=== PATIENT | male | born 1970 | race Caucasian/White ===

== ENCOUNTER 2018-07-03 20:18 | Emergency (ER) | payer BC, OTHER ==
[2018-07-03 20:23] VITALS: BP 175/103; PULSE 77; TEMP 97.7; BMI 25.7
--- NOTE | 2018-07-03 20:23 | PDOC ---
Rapid Medical Evaluation Medical Evaluation: Allergies Allergy/AdvReac Type Severity Reaction Status Date / Time No Known Allergies Allergy Unverified 05/07/14 09:21 I have performed a brief in-person evaluation of this patient. The patient presents with a chief complaint of: Hx of HLD, DM; feeling lightheaded today, checked BP today and it was elevated (SBP around 170); denies cp, sob, abd pain, n/v, numbness/tingling/weakness of extremities, vertigo Pertinent physical exam findings: In NAD, no gross focal deficits I have ordered the following: Labs, EKG The patient will proceed to the ED for further evaluation. 07/03/18 20:20 Discharge Disposition - Referrals Referrals: Han Sauceda MD [Primary Care Provider] - - Patient Instructions - Post Discharge Activity
[2018-07-03 21:29] LABS: BASO % 0.9 % (0-2.0); EOS % 4.5 % (0-4.5); HEMATOCRIT 43.4 % (35.4-49); LYMPH % 30.7 % (8-40); MCH 29.9 pg (25.7-33.7); MCHC 34.7 g/dl (32.0-35.9); MEAN CELL VOLUME 86.1 fl (80-96); MEAN PLT VOLUME 7.4 fl (7.5-11.1); MONO % 8.9 % (3.8-10.2); PLATELET COUNT 269 K/MM3 (134-434); RBC 5.04 M/mm3 (4.00-5.60); RDW 13.3 % (11.9-15.9); WHITE BLOOD COUNT 8.3 K/mm3 (4.0-10.0)
[2018-07-03 22:04] LABS: ANION GAP 7 MMOL/L (8-16); BLOOD UREA NITROGEN 21 mg/dL (7-18); CALCIUM 9.6 mg/dL (8.5-10.1); CHLORIDE 102 mmol/L (98-107); CO2 29 mmol/L (21-32); CREATININE 0.9 mg/dL (0.55-1.3); GLUCOSE,RANDOM 163 mg/dL (74-106); POTASSIUM 4.5 mmol/L (3.5-5.1); SODIUM 138 mmol/L (136-145)
--- NOTE | 2018-07-03 23:31 | PDOC ---
History of Present Illness - General Chief Complaint: Blood Pressure Problem Stated Complaint: Blood Pressure Problem Time Seen by Provider: 07/03/18 20:24 History Source: Patient Exam Limitations: No Limitations - History of Present Illness Initial Comments: 07/03/18 23:26 HISTORY OF PRESENT ILLNESS: Social 47-year-old male with past medical history of rabies, hyperlipidemia presents emergency department for evaluation of intermittent lightheadedness starting at approximately 6 PM. Patient reports she was sitting down watching television and when he stood up, he began to feel more lightheaded. He checked his blood pressure at home and noted his blood pressure was 170/100. Patient denies any blurry vision, headaches, chest pain, shortness of breath, abdominal pain, nausea, vomiting. No recent travel or sick contacts. PAST MEDICAL HISTORY: Denies past medical history SURGICAL HISTORY: Denies ALLERGIES: No known drug allergies REVIEW OF SYSTEMS General/Constitutional: Denies fever or chills. Denies weakness, weight change. HEENT: Denies change in vision. Denies ear pain or discharge. Denies sore throat. Cardiovascular: Denies chest pain or shortness of breath. Respiratory: Denies cough, wheezing, or hemoptysis. Gastrointestinal: Denies nausea, vomiting, diarrhea or constipation. Denies rectal bleeding. Genitourinary: Denies dysuria, frequency, or change in urination. Musculoskeletal: Denies joint or muscle swelling or pain. Denies neck or back pain. Skin and breasts: Denies rash or easy bruising. Neurologic: Denies headache, loss of consciousness, or loss of sensation. + vertigo Psychiatric: Denies depression or anxiety. Endocrine: Denies increased thirst. Denies abnormal weight change. Hematologic/Lymphatic: Denies anemia, easy bleeding, or history of blood clots. Allergic/Immunologic: Denies hives or skin allergy. Denies latex allergy. PHYSICAL EXAM General Appearance: Well-appearing, appropriately dressed. No apparent distress , no intoxication. HEENT: EOMI, PERRLA, normal ENT inspection, normal voice, TMs normal, pharynx normal. No conjunctival pallor. No photophobia, scleral icterus. Neck: Supple. Trachea midline. No tenderness, rigidity, carotid bruit, stridor , lymphadenopathy, or thyromegaly. Respiratory/Chest: Lungs CTAB. No shortness of breath, chest tenderness, respiratory distress, accessory muscle use. No crackles, rales, rhonchi, stridor , wheezing, dullness Cardiovascular: RRR. S1, S2. No JVD, murmur, bradycardia, tachycardia. Vascular Pulses: Dorsalis-Pedis (R): 2+, Dorsalis-Pedis (L): 2+ Gastrointestinal/Abdominal: Normal bowel sounds. Abdomen soft, non-distended. No tenderness or rebound tenderness. No organomegaly, pulsatile mass, guarding, hernia, hepatomegaly, splenomegaly. Musculoskeletal/Extremities: Normal inspection. FROM of all extremities, normal capillary refill. Pelvis Stable. No CVA tenderness. No tenderness to extremities, pedal edema, swelling, erythema or deformity. Integumentary: Appropriate color, dry, warm. No cyanosis, erythema, jaundice or rash Neurologic: marine mechanic II-XII intact. Fully oriented, alert. Appropriate mood/affect. Motor strength 5/5. No appreciable EOM palsy, facial droop or sensory deficit. (-)[place]-Hallpike. Gait steady. Past History - Past Medical History Allergies/Adverse Reactions: Allergies Allergy/AdvReac Type Severity Reaction Status Date / Time No Known Allergies Allergy Unverified 07/03/18 20:23 Home Medications: Ambulatory Orders Atorvastatin Ca [Lipitor] 80 mg PO HS 07/04/18 Ergocalciferol (Vitamin D2) [Vitamin D2] 5,000 unit PO WEEKLY 07/04/18 Fenofibrate 145 mg PO DAILY 07/04/18 Glimepiride 1 mg PO BID 07/04/18 Lisinopril 5 mg PO DAILY 07/04/18 Omeprazole 20 mg PO DAILY 07/04/18 Sitagliptin Phos/Metformin HCl [Janumet 50-1,000 mg Tablet] 1 each PO BID COPD: No Diabetes: Yes Hypercholesterolemia: Yes - Suicide/Smoking/Psychosocial Hx Smoking History: Never smoked *Physical Exam - Vital Signs Last Vital Signs Temp Pulse Resp BP Pulse Ox 97.7 F 77 18 175/103 H 98 07/03/18 20:20 07/03/18 20:20 07/03/18 20:20 07/03/18 20:20 07/03/18 20:20 Moderate Sedation - Procedure Monitoring Vital Signs: Procedure Monitoring Vital Signs Temperature 97.7 F 07/03/18 20:20 Pulse Rate 77 07/03/18 20:20 Respiratory Rate 18 07/03/18 20:20 Blood Pressure 175/103 H 07/03/18 20:20 O2 Sat by Pulse Oximetry (%) 98 07/03/18 20:20 ED Treatment Course - LABORATORY CBC & Chemistry Diagram: 07/03/18 21:17 07/03/18 21:17 - ADDITIONAL ORDERS Additional order review: Laboratory Results 07/03/18 21:17 Sodium 138 Potassium 4.5 Chloride 102 Carbon Dioxide 29 Anion Gap 7 L BUN 21 H Creatinine 0.9 Creat Clearance w eGFR > 60 Random Glucose 163 H Calcium 9.6 Troponin I < 0.02 07/03/18 21:17 RBC 5.04 MCV 86.1 MCHC 34.7 RDW 13.3 MPV 7.4 L Neutrophils % 55.0 Lymphocytes % 30.7 Monocytes % 8.9 Eosinophils % 4.5 Basophils % 0.9 - RADIOLOGY Radiology Studies Ordered: Category Date Time Status CHEST PA & LAT [RAD] Stat Radiology 07/03/18 23:24 Ordered Medical Decision Making - Medical Decision Making 07/03/18 23:31 A/P: 47-year-old male with intermittent lightheadedness worsens with motion Labs, EKG, chest x-ray, urine, orthostatics, labetalol 07/04/18 02:21 CT of the head as read by imaging community relations advisor: Brain parenchyma is normal and attenuation with no mass or hematoma. There is no midline shift. Fournier-white matter differentiation is normal. Ventricles are normal. Sucking and extra-axial CSF spaces are normal. Intracranial vascular structures are normal and attenuation. There is no calvarial fracture Paranasal sinuses are normally aerated. Pressure is currently 100/73. Patient is ambulatory on the unit is currently free of all symptoms. I will discharge the patient home to follow-up with his primary doctor for blood pressure management. [place] modification to been discussed with the patient for initial treatment of blood pressure management. I discussed the physical exam findings, ancillary test results and final diagnoses with the patient. I answered all of the patient's questions. The patient was satisfied with the care received and felt comfortable with the discharge plan and treatment plan. The patient will call their primary care physician within 24 hours to arrange follow-up and will return to the Emergency Department with any new, persistent or worsening symptoms. *DC/Admit/Observation/Transfer Diagnosis at time of Disposition: Dizziness - Discharge Dispostion Disposition: HOME Condition at time of disposition: Fair Decision to Admit order: No - Referrals Referrals: Han Sauceda MD [Primary Care Provider] - - Patient Instructions Printed Discharge Instructions: DI for High Blood Pressure Additional Instructions: Your blood pressure has returned to her normal level. It is important that she monitor your blood pressure to reduce her risk of stroke, heart attack and kidney disease. Make an appointment with her primary doctor for reevaluation of your blood pressure. Return to emergency department for any concerns. - Post Discharge Activity Forms/Work/School Notes: Back to Work
[2018-07-03] MEDS ORDERED: LABETALOL HCL 100 MG TABLET (FP) PO ONE (23:32)
--- NOTE | 2018-07-04 00:41 | PDOC ---
Attending Attestation - Resident Resident Name: Patrick Varela - ED Attending Attestation I have performed the following: I have examined & evaluated the patient, The case was reviewed & discussed with the resident, I agree w/resident's findings & plan
--- NOTE | 2018-07-05 11:42 | EKG ---
Test Reason : Blood Pressure : / mmHG Vent. Rate : 066 BPM Atrial Rate : 066 BPM P-R Int : 190 ms QRS Dur : 102 ms QT Int : 396 ms P-R-T Axes : 027 -02 -14 degrees QTc Int : 415 ms NORMAL SINUS RHYTHM NORMAL ECG NO PREVIOUS ECGS AVAILABLE Confirmed by PALOMO ASENCIO, HARI ([id number]) on 07/05/2018 11:42:29 AM Referred By: Confirmed By:HARI CULVER MD
== END 2018-07-04 03:47 | disposition home or self-care (01) ==
LOC: JER 20:18
DX: R42 Dizziness and giddiness (principal); E78.5 Hyperlipidemia, unspecified; E11.9 Type 2 diabetes mellitus without complications; E78.00 Pure hypercholesterolemia, unspecified
CPT/HCPCS: 36415; 70450-TC; 80048; 84484; 85025; 93005; 93010; 99282-25

== ENCOUNTER 2021-08-02 13:45 | Emergency (ER) | payer BC, OTHER ==
[2021-08-02] MEDS ORDERED: LIDOCAINE 5% TOPICAL PATCH TP ONE (14:24)
[2021-08-02] MEDS ORDERED: ACETAMINOPHEN 500 MG TABLET (FP) PO ONE (14:24)
[2021-08-02 14:25] VITALS: BP 123/71; PULSE 78; TEMP 97.8; BMI 25.1
[2021-08-02] MEDS ORDERED: LIDOCAINE 5% TOPICAL PATCH ONE (14:31)
[2021-08-02] MEDS ORDERED: ACETAMINOPHEN 500 MG TABLET (FP) ONE (14:31)
[2021-08-02] MEDS ORDERED: LIDOCAINE PATCH REMOVAL MC SCH (22:00)
== END 2021-08-02 17:30 | disposition home or self-care (01) ==
LOC: FER 13:45
DX: S22.42XA Multiple fractures of ribs, left side, initial encounter for closed fracture (principal); W19.XXXA Unspecified fall, initial encounter
CPT/HCPCS: 71250-TC; 99284-25

== ENCOUNTER 2022-02-13 12:07 | Emergency (ER) | payer BC, OTHER ==
[2022-02-13 12:49] VITALS: TEMP 98.4; BMI 25.1
[2022-02-13 14:00] VITALS: BP 133/83; PULSE 73; RESP 20
== END 2022-02-13 13:45 | disposition home or self-care (01) ==
LOC: JERFT 12:07
DX: T46.5X1A Poisoning by other antihypertensive drugs, accidental (unintentional), initial encounter (principal)
CPT/HCPCS: 99281-25

== ENCOUNTER 2023-07-05 15:24 | Observation (INO) | payer BC, OTHER ==
[2023-07-05] MEDS ORDERED: MECLIZINE HCL 25 MG TABLET (FP) PO ONE (16:09)
[2023-07-05] MEDS ORDERED: SODIUM CHLORIDE 1,000 ML IV SCH (16:30)
[2023-07-05] MEDS ORDERED: MECLIZINE HCL 25 MG TABLET (FP) ONE (16:49)
[2023-07-05 17:19] LABS: HEMATOCRIT 42.7 % (35.4-49); HEMOGLOBIN 14.3 G/dL (11.7-16.9); MCH 28.9 pg (25.7-33.7); MCHC 33.5 g/dl (32.0-35.9); MEAN CELL VOLUME 86.3 fl (80-96); MEAN PLT VOLUME 7.8 fl (7.5-11.1); PLATELET COUNT 197.8 10^3/uL (134-434); RBC 4.95 10^6/uL (4.00-5.60); RDW 14.5 % (11.9-15.9); WHITE BLOOD COUNT 6.2 10^3/uL (4.0-10.8)
[2023-07-05 17:25] LABS: INR 0.99 (0.83-1.09); PROTHROMBIN TIME (PATIENT) 11.5 SEC (9.7-13.0)
[2023-07-05 17:28] LABS: ACTIVATED PTT 32.6 SECONDS (25.2-36.5)
[2023-07-05 17:35] LABS: PLATELET ESTIMATE ADEQUATE
[2023-07-05 17:37] LABS: ALBUMIN 4.6 g/dl (3.4-5.0); BILIRUBIN,TOTAL 0.5 mg/dl (0.2-1); CALCIUM 9.9 mg/dl (8.5-10.1); CREATININE 0.9 mg/dl (0.6-1.3); POTASSIUM 3.9 mmol/L (3.5-5.1)
[2023-07-05 17:54] LABS: CHOLESTEROL 151 mg/dl (50-200); HDL CHOLESTEROL 34 mg/dl (40-60); LDL CHOLESTEROL (ONLY DFH) 87 mg/dl (5-100)
[2023-07-05 19:59] LABS: N-TERMINAL BNP 94.4 pg/ml (5-125)
[2023-07-06 00:48] VITALS: BMI 25.7
[2023-07-06] MEDS ORDERED: GLIMEPIRIDE 2 MG TABLET PO SCH (07:00)
[2023-07-06 08:52] LABS: CALCIUM 9.9 mg/dl (8.5-10.1); CREATININE 1.1 mg/dl (0.6-1.3); POTASSIUM 4.1 mmol/L (3.5-5.1)
[2023-07-06] MEDS ORDERED: FENOFIBRIC ACID 135 MG CAP PO SCH (10:00)
[2023-07-06] MEDS ORDERED: LISINOPRIL 20 MG TABLET PO SCH (10:00)
[2023-07-06] MEDS ORDERED: amLODIPine BESYLATE 5 MG TABLET (FP) PO SCH (10:00)
[2023-07-06] MEDS ORDERED: AMPICILLIN NA/SULBACTAM NA 3 GM in SODIUM CHLORIDE 100 ML IVPB SCH ×2 (10:45→16:00)
[2023-07-06] MEDS ORDERED: ASPIRIN COATED 81 MG TABLET.EC PO SCH (10:45)
[2023-07-06] MEDS ORDERED: INSULIN ASPART SLIDING SCALE (NOVOLOG) 1 VIAL SQ SCH (11:00)
[2023-07-06 11:34] LABS: BASO % 0.5 % (0-2.0); EOS % 5.5 % (0-4.5); HEMATOCRIT 41.4 % (35.4-49); HEMOGLOBIN 13.9 GM/dL (11.7-16.9); LYMPH % 28.5 % (8-40); MCHC 33.6 g/dl (32.0-35.9); MEAN CELL VOLUME 86.3 fl (80-96); MONO % 9.4 % (3.8-10.2); NEUT % 56.1 % (42.8-82.8); PLATELET COUNT 237 10^3/uL (134-434); RDW 13.7 % (11.9-15.9); WHITE BLOOD COUNT 7.9 K/mm3 (4.0-10.0)
[2023-07-06 14:51] VITALS: BP 133/74; PULSE 82; RESP 16; TEMP 98.3
[2023-07-06] MEDS ORDERED: ATORVASTATIN CA 80 MG TABLET (FP) PO SCH (22:00)
== END 2023-07-06 15:20 | disposition left against medical advice (07) ==
LOC: FER 15:24 → FM/S 19:31
PROVIDERS: ADMIT Internal Medicine
DX: G45.9 Transient cerebral ischemic attack, unspecified (principal); I10 Essential (primary) hypertension; R42 Dizziness and giddiness; E11.9 Type 2 diabetes mellitus without complications; E78.5 Hyperlipidemia, unspecified
CPT/HCPCS: 0241U-QW; 36415; 70450-TC; 70496-TC; 70498-TC; 70551-TC; 71046-TC-FY; 80048; 80053; 80061; 80307; 81003; 82962; 83036; 83880; 84443; 84484; 85025; 85027; 85610; 85730; 93005; 99285-25; G0378